=== PATIENT | male | born 1950 | race Caucasian/White ===

== ENCOUNTER 2020-11-03 15:13 | Emergency (ER) | payer MEDICARE, OTHER, SELFPAY ==
--- NOTE | 2020-11-03 15:08 | ECG_ITS ---
APPROVED REPORT Exam: Resting ECG HR:94 bpm ECG Measurements Heart Rate 94 AXES ND 168 P 68 QRSd 74 QRS 17 QT 362 T 40 QTc 452 Conclusion Normal sinus rhythm Possible Left atrial enlargement Borderline ECG Electronically signed by : Wally Baxter MD 11/03/2020 17:02:55
[2020-11-03 15:14] VITALS: BMI 25.8
--- NOTE | 2020-11-03 15:14 | XR_ITS ---
PROCEDURE INFORMATION: Exam: XR Chest Exam date and time: 11/03/2020 3:14 PM Age: 70 years old Clinical indication: Other: Rapid heart beat per patient. ; Additional info: Chest pain TECHNIQUE: Imaging protocol: XR of the chest. Views: 1 view. COMPARISON: No relevant prior studies available. FINDINGS: Lungs: The lungs are hyperinflated, consistent with underlying small airways disease. Atelectatic changes noted within both lung bases. Pleural spaces: Unremarkable. No pleural effusion. No pneumothorax. Heart/Mediastinum: Unremarkable. No cardiomegaly. Bones/joints: The thoracic spine demonstrates mild degenerative changes at multiple levels. IMPRESSION: 1. The lungs are hyperinflated, consistent with underlying small airways disease. 2. Atelectatic changes noted within both lung bases.
[2020-11-03 15:35] LABS: Basophils # 0.1 K/mm3 (0-0.2); Basophils % 1.3 % (0.1-2.0); Eosinophils # 0.1 K/mm3 (0.0-0.4); Eosinophils % 1.6 % (0.1-12.0); Hematocrit 45.9 % (42.0-52.0); Hemoglobin 15.7 g/dL (14.1-18.0); Lymphocytes # 1.1 K/mm3 (0.7-4.5); Mean Corpuscular HGB Conc 34.2 g/dL (31.8-35.4); Mean Corpuscular Hemoglobin 34.6 pg (27.0-31.2); Mean Corpuscular Volume 101.1 fl (80-94); Mean Platelet Volume 7.9 fl (7.4-10.4); Monocytes # 0.3 K/mm3 (0.1-1.0); Monocytes % 6.8 % (1.7-9.3); Neutrophils # 2.8 K/mm3 (1.8-7.8); Neutrophils % 64.4 % (37.0-80.0); Platelet Count 384 K/mm3 (142-424); Red Blood Count 4.54 M/mm3 (4.60-6.20); Red Cell Distribution Width 13.7 % (11.5-17.5); White Blood Count 4.4 K/mm3 (4.8-10.8)
[2020-11-03 15:49] LABS: Chloride 105 mmol/L (98-107); Potassium 3.3 mmoL/L (3.5-5.1); Sodium 142 mmol/L (136-145)
[2020-11-03 15:51] LABS: Blood Urea Nitrogen 13 mg/dl (9-20); Creatinine Clearance Estimated 79 mL/min (50-200); Estimated Glomerular Filt Rate 84 ml/min (>60); GFR (African American) 102 ML/MIN (>60)
[2020-11-03 15:52] LABS: Alanine Aminotransferase 44 U/L (12-78); Albumin Level 4.1 g/dl (3.5-5.0); Alkaline Phosphatase 89 U/L (38-126); Anion Gap 11.3 mEq/L (5-15); Aspartate Amino Transferase 52 U/L (17-59); Bilirubin,Direct 0.3 mg/dl (0.0-0.4); Bilirubin,Indirect 0.4 mg/dL (0.0-0.9); Bilirubin,Total 0.7 mg/dl (0.2-1.3); Bilirubin,Unconjugated 0.4 mg/dL (0.0-1.1); Carbon Dioxide 29 mmol/L (22.0-30.0); Glucose 104 mg/dl (74-100); Total Protein,Serum 7.1 g/dl (6.3-8.2)
[2020-11-03 15:58] LABS: D-Dimer 0.37 ug/mL (0.0-0.5)
[2020-11-03 16:10] LABS: Troponin I 0.01 ng/ml (0.00-0.034)
--- NOTE | 2020-11-03 18:41 | HMH.EDGENADL ---
ED Disposition Clinical Impression: Pleuritic chest pain, Abdominal distention Constipation Qualifiers: Constipation type: unspecified constipation type Qualified Code(s): K59.00 - Constipation, unspecified Disposition: Home, Self-Care Condition on Discharge: Good Instructions: DI for Atypical Chest Pain, DI for Constipation Additional Instructions: MiraLAX as prescribed. Follow-up with your physician at the [facility], call tomorrow to make appointment. Additional instructions for CHEST PAIN: See your physician as soon as possible for further evaluation. Return immediately if worsening chest pain, vomiting, shortness of breath, fever, coughing of blood. Additional instructions for ABDOMINAL PAIN: See your physician as soon as possible for further evaluation. Return immediately if worsening abdominal pain, vomiting, shortness of breath, fever, vomiting of blood or abdominal distention. Prescriptions: polyethylene glycoL 3350 [Miralax 17gm Packet] 17 gm PO DAILY #5 packet Prescription Printed Referrals: Provider,Referral, [Primary Care Provider] - - Critical Care Critical Care Time: No Attestation: On 11/03/20, the high probability of a clinically significant, sudden or life threatening deterioration of the following system(s) required my full and direct attention, intervention and personal management. The time I documented below is in addition to time spent performing reported procedures but includes the following listed in this critical care notation. Medical Decision Making - Tony Inquiry Pt receiving controlled substance: No Vital Signs: 11/03/20 19:00 11/03/20 19:39 Temperature 98.2 F 98.6 F Temperature Source Oral Oral Pulse Rate 100 H Pulse Rate [Right Brachial] 68 Respiratory Rate 17 16 Blood Pressure 137/97 H Blood Pressure [Right Arm] 137/100 H Blood Pressure Mean [Right Arm] 112 Blood Pressure Source Automatic Cuff Blood Pressure Source [Right Arm] Automatic Cuff Blood Pressure Position Sitting Blood Pressure Position [Right Arm] Sitting 02 Sat by Pulse Oximetry 98 95 Oxygen Delivery Method Room Air Room Air - Lab Data Lab Results 11/03/20 15:20: WBC 4.4 L, RBC 4.54 L, Hgb 15.7, Hct 45.9, MCV 101.1 H, MCH 34.6 H, MCHC 34.2, RDW 13.7, Plt Count 384, MPV 7.9, Neut % (Auto) 64.4, Lymph % (Auto) 26.0, Cannon % (Auto) 6.8, Eos % (Auto) 1.6, Baso % (Auto) 1.3, Neut # (Auto) 2.8, Lymph # (Auto) 1.1, Cannon # (Auto) 0.3, Eos # (Auto) 0.1, Baso # (Auto) 0.1 11/03/20 15:20: Sodium 142, Potassium 3.3 L, Chloride 105, Carbon Dioxide 29, Anion Gap 11.3, BUN 13, Creatinine 0.90, Estimated Creat Clear 79, Estimated GFR 84, Est GFR ( Amer) 102, Glucose 104 H, Calcium 9.0, Troponin I 0.01 11/03/20 15:20: D-Dimer 0.37 11/03/20 15:20: Total Bilirubin 0.7, Direct Bilirubin 0.3, Conjugated Bilirubin 0.0, Indirect Bilirubin 0.4, Unconjugated Bilirubin 0.4, AST 52, ALT 44, Alkaline Phosphatase 89, Total Protein 7.1, Albumin 4.1 11/03/20 15:20: Amylase 64, Lipase 147 11/03/20 18:24: Troponin I 0.01 Result diagrams: 11/03/20 15:20 11/03/20 15:20 Orders (Tests/Meds): ED MEDICATIONS Discontinued Medications Generic Name Dose Route Start Last Admin Trade Name Freq PRN Reason Stop Dose Admin Iopamidol 75 ml 11/03/20 20:23 11/03/20 20:24 Iopamidol-370 (76%);100ml Bottle IV 11/03/20 20:24 75 ml ONCE ONE Administration Sodium Chloride 10 ml 11/03/20 20:23 11/03/20 20:24 Sodium Chloride 0.9% 10ml Syr (Rad Only) IV 11/03/20 20:24 10 ml ONCE ONE Administration ORDERS Category Date Time Status Troponin I Q3H Lab 11/03/20 21:15 Ordered - Radiology Data #1 Image(s): Chest Image Reviewed: Yes I have reviewed radiologist's interpretation PROCEDURE INFORMATION: Exam: XR Chest Exam date and time: 11/03/2020 3:14 PM Age: 70 years old Clinical indication: Other: Rapid heart beat per patient. ; Additional info: Chest pain TECHNIQUE: Imag
[2020-11-03 18:58] LABS: Troponin I 0.01 ng/ml (0.00-0.034)
[2020-11-03 19:00] VITALS: BP 137/97; PULSE 100; RESP 17; TEMP 36.8; O2SAT 98
--- NOTE | 2020-11-03 19:00 | PC.NURSE ---
received report from verónica johns
--- NOTE | 2020-11-03 19:10 | CT_ITS ---
PROCEDURE INFORMATION: Exam: CT Abdomen And Pelvis With Contrast Exam date and time: 11/03/2020 7:10 PM Age: 70 years old Clinical indication: Generalized; Patient HX: Abdominal pain with distension. Prior HX of colon cancer in 2019, part of colon removed and chemotherapy. ; Additional info: Abdominal pain, distension TECHNIQUE: Imaging protocol: Computed tomography of the abdomen and pelvis with contrast. Radiation optimization: All CT scans at this facility use at least one of these dose optimization techniques: automated exposure control; mA and/or kV adjustment per patient size (includes targeted exams where dose is matched to clinical indication); or iterative reconstruction. Contrast material: ISOVUE; Contrast volume: 75 ml; Contrast route: IV; COMPARISON: CR XR CHEST PORTABLE 11/03/2020 3:24 PM FINDINGS: Lungs: Lung findings reported separately. Liver: There is a diffuse decrease in hepatic parenchymal density, consistent with mild fatty infiltration. The liver demonstrates punctate calcifications, consistent with remote granulomatous organism exposure. Gallbladder and bile ducts: Normal. No calcified stones. No ductal dilation. Pancreas: Normal. No ductal dilation. Spleen: The spleen demonstrates punctate calcifications, consistent with remote granulomatous organism exposure. Adrenal glands: 1.7 cm right adrenal nodule present, likely an adenoma. Mild thickening of the left adrenal gland. Kidneys and ureters: Nonspecific low-density foci of the kidneys statistically favor benign cysts, no further follow-up needed, as large as 4.5 cm on the right. 6 mm nonobstructing calcification present within the right kidney. Stomach and bowel: A large amount of stool is noted throughout the colon. Mild diverticulosis is present in the distal colon. Status post right hemicolectomy. Intraperitoneal space: Normal. No significant fluid collection. Vasculature: The vasculature demonstrates diffuse mild atherosclerotic calcification. Lymph nodes: No mesenteric or retroperitoneal lymphadenopathy. Urinary bladder: Unremarkable as visualized. Reproductive: The prostate demonstrates mild nonspecific enlargement. The seminal vesicles are normal. The prostate gland demonstrates nonspecific parenchymal calcifications. Bones/joints: The lumbar spine demonstrates mild degenerative changes at multiple levels. Soft tissues: Bilateral fat filled inguinal hernias. IMPRESSION: 1. 1.7 cm right adrenal nodule present, likely an adenoma. 2. 6 mm nonobstructing calcification present within the right kidney. 3. Bilateral fat filled inguinal hernias. 4. A large amount of stool is noted throughout the colon. 5. Mild diverticulosis is present in the distal colon. 6. No mesenteric or retroperitoneal lymphadenopathy.
[2020-11-03 19:23] LABS: Amylase 64 U/L (30-110); Lipase 147 U/L (23-300)
--- NOTE | 2020-11-03 19:34 | CT_ITS ---
PROCEDURE INFORMATION: Exam: CTA Chest With Contrast Exam date and time: 11/03/2020 7:34 PM Age: 70 years old Clinical indication: Sternal or substernal pain; Patient HX: 2 episodes of sharp chest pain. D-dimer .37 TECHNIQUE: Imaging protocol: Computed tomographic angiography of the chest with contrast. 3D rendering (Not supervised by radiologist): MIP and/or 3D reconstructed images were created by the technologist. Radiation optimization: All CT scans at this facility use at least one of these dose optimization techniques: automated exposure control; mA and/or kV adjustment per patient size (includes targeted exams where dose is matched to clinical indication); or iterative reconstruction. Contrast material: ISOVUE 370; Contrast volume: 75 ml; Contrast route: INTRAVENOUS (IV); COMPARISON: CR XR CHEST PORTABLE 11/03/2020 3:24 PM FINDINGS: Pulmonary arteries: No evidence of pulmonary embolism. Aorta: No evidence of aortic dissection. Lungs: Atelectatic changes noted within both lung bases. Pleural spaces: There is no evidence of pneumothorax. There are no pleural effusions present. Heart: Unremarkable. No cardiomegaly. No pericardial effusion. Lymph nodes: Unremarkable. No enlarged lymph nodes. Bones/joints: Unremarkable. No acute fracture. Soft tissues: Unremarkable. Other findings: Abdominal findings reported separately. IMPRESSION: 1. No evidence of pulmonary embolism. 2. No evidence of aortic dissection. 3. Atelectatic changes noted within both lung bases.
[2020-11-03 19:39] VITALS: BP 137/100; PULSE 68; RESP 16; TEMP 37; O2SAT 95; BMI 27.3
[2020-11-03 20:00] VITALS: BP 132/84; PULSE 77; RESP 16; TEMP 36.6; O2SAT 98
[2020-11-03 21:30] VITALS: BP 167/89; PULSE 65; RESP 18; O2SAT 98
[2020-11-03 21:48] VITALS: BP 157/82; PULSE 75; RESP 18; TEMP 36.7; O2SAT 98
[2020-11-03 21:54] LABS: Troponin I 0.02 ng/ml (0.00-0.034)
[2020-11-03 21:57] VITALS: BP 133/75; PULSE 77; RESP 16; O2SAT 98
== END 2020-11-03 22:00 | disposition home or self-care (01) ==
PROVIDERS: Emergency Provider Emergency Medicine
DX: R07.89 Other chest pain (principal); K59.00 Constipation, unspecified; I10 Essential (primary) hypertension; K21.9 Gastro-esophageal reflux disease without esophagitis; F17.210 Nicotine dependence, cigarettes, uncomplicated
CPT/HCPCS: 36415; 71045; 71275; 74177; 80048; 80076; 82150; 83690; 84484; 85025; 85378; 93005; 99282; Q9967

== ENCOUNTER → 2020-12-09 14:39 | Outpatient (CLI) | payer MEDICARE, OTHER, SELFPAY | PROVIDERS: PCP Internal Medicine; Visit Provider Nurse Practitioner | DX: Z20.822 Contact with and (suspected) exposure to COVID-19 (principal) | CPT/HCPCS: C9803; U0003; U0005 ==

== ENCOUNTER 2021-01-30 11:22 | Emergency (ER) | payer MEDICARE, OTHER, SELFPAY ==
[2021-01-30 11:23] VITALS: BP 121/101; PULSE 116; RESP 18; TEMP 36.8; O2SAT 96; BMI 26.6
--- NOTE | 2021-01-30 12:33 | HMH.EDGENADL ---
ED Disposition Clinical Impression: Abdominal bloating, Melena Disposition: Home, Self-Care Condition on Discharge: Fair Instructions: DI for Acute Abdominal Pain, Gastrointestinal Bleeding Referrals: Jeff Bhakta MD [Staff Physician] - 3 days (melena w/ hx colon cancer; needs PCP and scope) Time of Disposition: 13:26 - Critical Care Critical Care Time: No Attestation: On 01/30/21, the high probability of a clinically significant, sudden or life threatening deterioration of the following system(s) required my full and direct attention, intervention and personal management. The time I documented below is in addition to time spent performing reported procedures but includes the following listed in this critical care notation. Medical Decision Making - Medical Records Medical records reviewed: Yes: I reviewed the patient's medical records. - Tony Inquiry Pt receiving controlled substance: No Vital Signs: 01/30/21 11:23 Temperature 98.3 F Temperature Source Oral Pulse Rate [Right Radial] 116 H Respiratory Rate 18 Blood Pressure [Right Arm] 121/101 H Blood Pressure Mean [Right Arm] 107 Blood Pressure Source [Right Arm] Automatic Cuff Blood Pressure Position [Right Arm] Sitting 02 Sat by Pulse Oximetry 96 Oxygen Delivery Method Room Air - Lab Data Lab Results 01/30/21 12:50: WBC 5.1, RBC 4.98, Hgb 17.5, Hct 51.3, MCV 103.0 H, MCH 35.2 H, MCHC 34.1, RDW 14.3, Plt Count 380, MPV 7.8, Neut % (Auto) 70.7, Lymph % (Auto) 18.6, [place] % (Auto) 6.6, Eos % (Auto) 1.7, Baso % (Auto) 2.3 H, Neut # (Auto) 3.6, Lymph # (Auto) 1.0, [place] # (Auto) 0.3, Eos # (Auto) 0.1, Baso # (Auto) 0.1 01/30/21 12:50: Sodium 143, Potassium 3.6, Chloride 104, Carbon Dioxide 32 H, Anion Gap 10.6, BUN 10, Creatinine 0.90, Estimated Creat Clear 82, Estimated GFR 84, Est GFR ( Amer) 102, Glucose 101 H, Calcium 9.3, Total Bilirubin 1.0, AST 76 H, ALT 63, Alkaline Phosphatase 102, Total Protein 7.2, Albumin 4.3, Globulin 2.9, Albumin/Globulin Ratio 1.5, Lipase 169 Result diagrams: 01/30/21 12:50 01/30/21 12:50 Orders (Tests/Meds): ORDERS Category Date Time Status Hepatitis Panel (4) Stat Lab 01/30/21 12:01 Ordered Medical Decision Narrative: 70-year-old male with past medical history of hypertension, colon cancer status post resection, appendectomy, heavy smoker, and heavy alcohol use currently sober who presents to the emergency department with chief complaint of abdominal bloating and discomfort which has been ongoing since October of this year. Patient is scheduled to have an ultrasound outpatient but not until February 10, did not feel he could wait that long. [facility] it appears that patient was only scheduled to get an abdominal aortic ultrasound. Given patient's heavy alcohol use history, as well as abdominal symptoms we will attempt ultrasound his gallbladder, evaluate for ascites, and evaluate his aorta. [id number] bedside ultrasound was performed as ultrasound is not available today on the holiday. Bedside ultrasound did not reveal any aortic aneurysm or dissection, aorta is normal in caliber when measured through the bifurcation. Gallbladder does not have any wall thickening or pericholecystic fluid. There is presence of some sludge at the neck of the gallbladder. Cystic duct was unable to be identified due to bowel gas. No evidence of ascites or abnormal appearing liver parenchyma. Patient also had a CBC, CMP, hepatitis panel obtained while in the emergency department. This showed no anemia or thrombocytopenia. Mildly elevated AST, but no other significant abnormalities. Kidney function is within normal limits. Hepatitis panel did not result while the patient was in the emergency department, but we will schedule him for follow-up with his PCP to follow this up. Given patient's complaints of melena as well as abdominal discomfort, in the setting of colon cancer history, and alcohol use histo
[2021-01-30 13:02] LABS: Basophils # 0.1 K/mm3 (0-0.2); Basophils % 2.3 % (0.1-2.0); Eosinophils # 0.1 K/mm3 (0.0-0.4); Eosinophils % 1.7 % (0.1-12.0); Hematocrit 51.3 % (42.0-52.0); Hemoglobin 17.5 g/dL (14.1-18.0); Lymphocytes % 18.6 % (10-50); Mean Corpuscular HGB Conc 34.1 g/dL (31.8-35.4); Mean Corpuscular Hemoglobin 35.2 pg (27.0-31.2); Mean Platelet Volume 7.8 fl (7.4-10.4); Monocytes # 0.3 K/mm3 (0.1-1.0); Monocytes % 6.6 % (1.7-9.3); Neutrophils # 3.6 K/mm3 (1.8-7.8); Neutrophils % 70.7 % (37.0-80.0); Platelet Count 380 K/mm3 (142-424); Red Blood Count 4.98 M/mm3 (4.60-6.20); Red Cell Distribution Width 14.3 % (11.5-17.5); White Blood Count 5.1 K/mm3 (4.8-10.8)
[2021-01-30 13:07] LABS: Chloride 104 mmol/L (98-107); Potassium 3.6 mmoL/L (3.5-5.1); Sodium 143 mmol/L (136-145)
[2021-01-30 13:09] LABS: Alanine Aminotransferase 63 U/L (12-78); Aspartate Amino Transferase 76 U/L (17-59); Blood Urea Nitrogen 10 mg/dl (9-20); Creatinine Clearance Estimated 82 mL/min (50-200); Estimated Glomerular Filt Rate 84 ml/min (>60); GFR (African American) 102 ML/MIN (>60)
[2021-01-30 13:10] LABS: Albumin Level 4.3 g/dl (3.5-5.0); Albumin/Globulin Ratio 1.5 (1.1-1.8); Alkaline Phosphatase 102 U/L (38-126); Anion Gap 10.6 mEq/L (5-15); Calcium 9.3 mg/dl (8.4-10.2); Carbon Dioxide 32 mmol/L (22.0-30.0); Globulin 2.9 g/dL (1.3-3.2); Glucose 101 mg/dl (74-100); Lipase 169 U/L (23-300); Total Protein,Serum 7.2 g/dl (6.3-8.2)
[2021-01-30 13:37] VITALS: BP 154/100; PULSE 100; RESP 20; TEMP 36.8; O2SAT 96
[2021-02-02 10:12] LABS: Hep A Ab, IgM Negative (Negative); Hepatitis B Core Antibody IgM Negative (Negative); Hepatitis B Surface Antigen Negative (Negative); Hepatitis C Antibody <0.1 s/co ratio (0.0-0.9)
== END 2021-01-30 13:38 | disposition home or self-care (01) ==
PROVIDERS: Emergency Provider Emergency Medicine; PCP Family Medicine
DX: R10.30 Lower abdominal pain, unspecified (principal); K92.1 Melena; I10 Essential (primary) hypertension; F17.210 Nicotine dependence, cigarettes, uncomplicated; F10.11 Alcohol abuse, in remission; Z85.038 Personal history of other malignant neoplasm of large intestine
CPT/HCPCS: 80053; 80074; 83690; 85025; 99282

== ENCOUNTER → 2021-04-15 12:30 | Outpatient (CLI) | payer MEDICARE, OTHER, SELFPAY ==
[2021-04-16 08:30] LABS: Covid-19 Nasal PCR Sendout Lex NOT DETECTED
== END ==
PROVIDERS: Visit Provider Nurse Practitioner
DX: Z20.822 Contact with and (suspected) exposure to COVID-19 (principal)
CPT/HCPCS: C9803; U0004; U0005

== ENCOUNTER 2021-10-30 14:43 | Observation (INO) | payer MEDICARE, OTHER, SELFPAY ==
[2021-10-30] VITALS (20 sets, daily range): BP systolic 129–155; BP diastolic 71–95; PULSE 81–117; RESP 15–20; TEMP 37.2–38.1; O2SAT 92–98; BMI 27.3; BMI 26.6
--- NOTE | 2021-10-30 15:26 | CT_ITS ---
FINAL REPORT TECHNIQUE: Thin section axial images were obtained from the lung bases to the pubic symphysis without IV contrast. Coronal reconstruction images were obtained from the axial data. Exam was performed using dose reduction technique. CLINICAL HISTORY: flank pain COMPARISON: November 03, 2020 FINDINGS: There is atelectasis and scarring in the lung bases. There is a nonobstructing right renal stone. There are no obstructing renal or ureteral stones. There are right renal cysts. There is no hydronephrosis or perinephric stranding. There are diffuse fatty changes of the liver without focal lesion. The gallbladder is present. The spleen, left adrenal and pancreas are unremarkable. There is a stable hypodense right adrenal nodule measuring 2.5 cm. It is 12 Hounsfield units on noncontrast imaging and does not meet strict criteria for an adenoma. There is no small bowel obstruction. There is surgical anastomosis in the right abdomen from partial colectomy. There is no lymphadenopathy or ascites. There is no evidence of small bowel obstruction. The appendix is normal. GI tract is without acute abnormality. There is diverticulosis without diverticulitis. There is no lymphadenopathy or ascites. No acute osseous abnormality is identified. IMPRESSION: 1. Nonobstructing right renal stone. No obstructing renal stones. 2. Fatty liver. 3. Right adrenal nodule, not an adenoma by strict criteria. Reviewed, Interpreted and Dictated by Darleen Linda MD Transcribed by Lolis Alvarado Authenticated and [facility]
--- NOTE | 2021-10-30 15:34 | HMH.EDGENADL ---
Discharge Plan Disposition Chief Complaint: Recheck/Abnormal Lab/Rx Discharge ED Provider: Carri Valdivia General Adult HPI General Chief complaint: Recheck/Abnormal Lab/Rx Stated complaint: Fever, weakness, chills Time Seen by Provider: 10/30/21 15:26 History of Present Illness HPI narrative: This patient is a 71-year-old male with a history of BPH presenting to the emergency department for evaluation of polyuria, inability to empty his bladder, bilateral flank pain, and chills. He states that he has been feeling bad for a few days. He states that he does have a history of kidney stones, but this feels different. He states that fever and chills started overnight. Nothing makes his symptoms better or worse. He denies any chest pain, shortness of breath, incontinence, vomiting, saddle anesthesia, weakness, or other concerns. He does admit to diarrhea. Related Data Home Medications Medication Instructions Recorded Confirmed amlodipine 10 mg tablet 10 mg PO DAILY blood pressure 10/30/21 10/30/21 aspirin 81 mg capsule 81 mg PO DAILY Blood thinner 10/30/21 10/30/21 losartan 25 mg tablet 75 mg PO DAILY blood pressure 10/30/21 10/30/21 pantoprazole 40 mg tablet,delayed 40 mg PO ONCE GERD 10/30/21 10/30/21 release sildenafil 100 mg tablet 50 mg PO DAILY erectile dysfunction 10/30/21 10/30/21 Allergies Allergy/AdvReac Type Severity Reaction Status Date / Time No Known Allergies Allergy Verified 11/03/20 15:14 [facility] Social History (Updated 10/30/21 @ 20:51 by Carri Valdivia DO) Smoking Status: Current every day smoker tobacco type: cigarettes packs per day: 1 alcohol intake: current substance use type: denies use current occupational status: previously employed ROS Obtained: Yes All systems reviewed & no additional complaints except as documented 14 point review of systems obtained and negative except otherwise mentioned in HPI. Physical Exam General General appearance: alert and in no apparent distress Comment: Nontoxic-appearing Head Head exam: atraumatic and normocephalic Eye Eye exam: Present normal appearance, PERRL and EOMI ENT ENT exam: Present normal exam, normal oropharynx and normal external ear exam Neck Neck exam: Present normal inspection and full ROM Chest Chest inspection: Present normal inspection and symmetric chest wall rise Respiratory Respiratory exam: Present normal lung sounds bilaterally; Absent respiratory distress or wheezes Cardiovascular Cardiovascular exam: Present regular rate and normal rhythm Abdominal Exam Abdominal exam: Present soft and tenderness (Suprapubic); Absent distention, guarding, rebound or rigidity Extremities Exam Extremities exam: Present normal inspection Back Exam Back exam: Present normal inspection Neurological Exam Neurological exam: Present alert, oriented X3 and CN II-XII intact Psychiatric Psychiatric exam: Present normal affect Skin Skin exam: Present warm and dry Lymphatic Lymphatic Findings: no adenopathy Medical Decision Making Medical Records Medical records reviewed: Yes I reviewed the patient's medical records. Tony Inquiry Pt receiving controlled substance: No Vital Signs: 10/30/21 15:08 10/30/21 15:30 10/30/21 15:53 Temperature 99.0 F Temperature Source Oral Pulse Rate 109 H Pulse Rate [Left Radial] 117 H Respiratory Rate 17 Blood Pressure 145/95 H 133/92 H Blood Pressure [Right Arm] 143/92 H Blood Pressure Mean 111 114 Blood Pressure Mean [Right Arm] 109 02 Sat by Pulse Oximetry 94 L 95 Oxygen Delivery Method Room Air Oxygen Flow Rate (LPM) 10/30/21 16:00 10/30/21 16:30 10/30/21 17:00 Temperature Temperature Source Pulse Rate 102 H 86 93 H Pulse Rate [Left Radial] Respiratory Rate 17 Blood Pressure 134/92 H 133/71 140/77 Blood Pressure [Right Arm] Blood Pressure Mean 106 91 Blood Pressure Mean [Right Arm] 02 Sat by Pulse Oximetry 98 96 95 Oxygen Delivery
[2021-10-30 16:12] LABS: Basophils # 0.1 K/mm3 (0-0.2); Basophils % 1.2 % (0.1-2.0); Eosinophils % 0.8 % (0.1-12.0); Hematocrit 52.5 % (42.0-52.0); Hemoglobin 17.5 g/dL (14.1-18.0); Lymphocytes # 0.6 K/mm3 (0.7-4.5); Lymphocytes % 11.5 % (10-50); Mean Corpuscular HGB Conc 33.2 g/dL (31.8-35.4); Mean Corpuscular Volume 102.4 fl (80-94); Mean Platelet Volume 8.3 fl (7.4-10.4); Monocytes # 0.3 K/mm3 (0.1-1.0); Monocytes % 5.6 % (1.7-9.3); Neutrophils # 4.3 K/mm3 (1.8-7.8); Neutrophils % 80.9 % (37.0-80.0); Platelet Count 331 K/mm3 (142-424); Red Blood Count 5.13 M/mm3 (4.60-6.20); Red Cell Distribution Width 15.1 % (11.5-17.5); White Blood Count 5.3 K/mm3 (4.8-10.8)
[2021-10-30 16:17] LABS: Alanine Aminotransferase 54 U/L (12-78); Albumin/Globulin Ratio 1.4 (1.1-1.8); Alkaline Phosphatase 108 U/L (38-126); Anion Gap 8.7 mEq/L (5-15); Aspartate Amino Transferase 55 U/L (17-59); Bilirubin,Total 1.2 mg/dl (0.2-1.3); Blood Urea Nitrogen 5 mg/dl (9-20); Calcium 8.6 mg/dl (8.4-10.2); Carbon Dioxide 33 mmol/L (22.0-30.0); Chloride 100 mmol/L (98-107); Creatinine Clearance Estimated 83 mL/min (50-200); Estimated Glomerular Filt Rate 96 ml/min (>60); GFR (African American) 116 ML/MIN (>60); Globulin 2.9 g/dL (1.3-3.2); Glucose 100 mg/dl (74-100); Lactic Acid 1.1 mmol/L (0.7-2.1); Lipase 230 U/L (23-300); Sodium 139 mmol/L (136-145); Total Protein,Serum 6.9 g/dl (6.3-8.2)
[2021-10-30 16:21] LABS: Potassium 2.7 mmoL/L (3.5-5.1)
--- NOTE | 2021-10-30 16:23 | PC.NURSE ---
notified ER of critical potassium result
[2021-10-30 16:24] LABS: Coronavirus 19, PCR Not Detected (NotDetected); Influenza A, PCR Not Detected (NotDetected); Influenza B, PCR Not Detected (NotDetected)
[2021-10-30 16:34] LABS: Microscopic, Urine URINE MICROSCOPIC (MICROSCOPIC)
[2021-10-30 17:01] LABS: Appearance,Urine CLEAR (Clear); Bilirubin,Urine Negative (Negative); Blood, Urine TRACE-L (Negative); Color,Urine YELLOW (Yellow); Glucose,Urine (UA) Negative (Negative); Ketones,Urine TRACE (Negative); Leukocyte Esterase,Urine 2+ (Negative); Nitrate,Urine Negative (Negative); Protein,Urine TRACE (Negative); Urobilinogen,Urine 0.2 EU/dl (0.2)
[2021-10-30 17:07] LABS: Bacteria,Urine Trace /lpf; RBC,Urine Occasional #/hpf (0-3)
[2021-10-30 17:08] LABS: Amorphous Sediment,Urine Trace /lpf
--- NOTE | 2021-10-30 17:44 | PC.NURSE ---
pt girlfriend called at this time to check on pt. She wanted us to notify the doctor that if pt is admitted we would need to monitor him for alcohol withdraw, states pt drinks approx a fifth of liquor per day. Notified ER MD after speaking with pt girlfriend.
--- NOTE | 2021-10-30 18:46 | PC.NURSE ---
DR LUTHER AVILA FOR POSSIBLE ADMISSION
--- NOTE | 2021-10-30 19:02 | PC.NURSE ---
pt filled out the [facility] refusal form and that has been faxed to the number on the sheet at this time.
--- NOTE | 2021-10-30 19:03 | PC.NURSE ---
MARYSOL JOE at speaking with Dr. Clement at this time
[2021-10-30 19:21] LABS: Activated Partial Thrombo Time 31.2 seconds (22.8-30.6); INR 1.15 (0.9-1.1); Prothrombin Time 12.9 seconds (10.1-12.5)
[2021-10-30 19:24] LABS: Ethyl Alcohol < 10 mg/dl (0-10)
--- NOTE | 2021-10-30 20:10 | PC.NURSE ---
Attempted to call report; nurse Angela stated she would call back.
--- NOTE | 2021-10-30 20:24 | PC.NURSE ---
2017-Report given to Angela Bull RN.
--- NOTE | 2021-10-30 20:57 | PC.NURSE ---
Addendum entered by Charmaine Summers CNA 10/30/21 21:32: CORRECTION PT ARRIVED TO FLOOR VIA W/C @ 2056 Original Note: PT ARRIVED TO FLOO @ 2056
--- NOTE | 2021-10-30 23:49 | PC.NURSE ---
RN Aware of elevated BP and Temp @ this time.
[2021-10-31] VITALS (8 sets, daily range): BP systolic 125–159; BP diastolic 77–91; PULSE 61–100; RESP 16–20; TEMP 36.9–37.3; O2SAT 91–95; BMI 26.6
--- NOTE | 2021-10-31 04:00 | PC.NURSE ---
pt admitted this shift with electrolyte imbalances and weakness, bed alarm remains in use, side rails padded for possible etoh withdrawal, pt states that he drinks a fifth of liquor daily and last drink was 10/28; CIWA was a 9 and pt given diazepam as prescribed x2 with relief, and pt rested well, pt alert and oriented x4; no edema or swelling noted, skin pwd, pt on 02 at 1L pnc for 02 sats 89 on room air, o2 sats have been 91-94 on 2L of ; lung sounds clear, pt voiding without difficulty, pt on flomax at home, no other issues or concerns at this time.
[2021-10-31 06:21] LABS: Chloride 104 mmol/L (98-107); Sodium 139 mmol/L (136-145)
[2021-10-31 06:22] LABS: Basophils # 0.1 K/mm3 (0-0.2); Basophils % 2.4 % (0.1-2.0); Eosinophils # 0.1 K/mm3 (0.0-0.4); Eosinophils % 2.3 % (0.1-12.0); Hematocrit 47.5 % (42.0-52.0); Lymphocytes # 0.9 K/mm3 (0.7-4.5); Lymphocytes % 19.9 % (10-50); Mean Corpuscular HGB Conc 32.3 g/dL (31.8-35.4); Mean Corpuscular Hemoglobin 33.1 pg (27.0-31.2); Mean Corpuscular Volume 102.7 fl (80-94); Mean Platelet Volume 8.1 fl (7.4-10.4); Monocytes # 0.3 K/mm3 (0.1-1.0); Monocytes % 7.4 % (1.7-9.3); Neutrophils # 2.9 K/mm3 (1.8-7.8); Platelet Count 237 K/mm3 (142-424); Red Blood Count 4.63 M/mm3 (4.60-6.20); White Blood Count 4.3 K/mm3 (4.8-10.8)
[2021-10-31 06:24] LABS: Alanine Aminotransferase 37 U/L (12-78); Albumin Level 3.3 g/dl (3.5-5.0); Albumin/Globulin Ratio 1.2 (1.1-1.8); Alkaline Phosphatase 87 U/L (38-126); Anion Gap 7.9 mEq/L (5-15); Aspartate Amino Transferase 50 U/L (17-59); Bilirubin,Total 0.7 mg/dl (0.2-1.3); Carbon Dioxide 30 mmol/L (22.0-30.0); Globulin 2.7 g/dL (1.3-3.2)
[2021-10-31 06:25] LABS: Calcium 7.6 mg/dl (8.4-10.2); Glucose 110 mg/dl (74-100)
[2021-10-31 06:41] LABS: Potassium 2.9 mmoL/L (3.5-5.1)
[2021-10-31 07:05] LABS: Hemoglobin 15.3 g/dL (14.1-18.0)
[2021-10-31 07:18] LABS: Blood Urea Nitrogen 5 mg/dl (9-20); Creatinine Clearance Estimated 81 mL/min (50-200); Estimated Glomerular Filt Rate 112 ml/min (>60); GFR (African American) 135 ML/MIN (>60)
--- NOTE | 2021-10-31 07:30 | P.CONPHA_ITS ---
[facility] Pharmacy VTE Monitoring Patient Demographics Admission date: 10/30/21 Report Date: 10/31/21 Time: 07:30 Patient Allergies No Known Allergies Allergy (Verified 11/03/20 15:14) Height: 1.75 m Weight: 81.732 kg Current Active Problems (Updated 10/30/21 @ 22:43 by Angela Kim RN) Hypokalemia (Acute) Hypomagnesemia (Acute) Weakness (Acute) VTE Risk Labs: VTE Related Lab Results Hgb 15.3 g/dL (14.1-18.0) D 10/31/21 05:50 Hct 47.5 % (42.0-52.0) 10/31/21 05:50 Plt Count 237 K/mm3 (142-424) D 10/31/21 05:50 PT 12.9 seconds (10.1-12.5) H 10/30/21 15:58 INR 1.15 (0.9-1.1) H 10/30/21 15:58 APTT 31.2 seconds (22.8-30.6) H 10/30/21 15:58 BUN 5 mg/dl (9-20) L 10/31/21 05:50 Creatinine 0.70 mg/dl (0.66-1.25) 10/31/21 05:50 Estimated Creat Clear 81 mL/min (50-200) 10/31/21 05:50 Was VTE Risk Assessment Performed: Yes VTE Score: 3 VTE Risk Level: Low Risk Prophylaxis VTE Prophylaxis Ordered?: Yes Types of VTE Prophylaxis: TEDS Knee High and Pharmacological Location of Applied Device: Bilateral Lower Extremeties Pharmacologic Type: Enoxaparin
--- NOTE | 2021-10-31 08:08 | EXP.HP ---
History of Present Illness *Admission Date: 10/30/21 *Reason for consult:: Admission to hospital *History of present illness: Medical Decision Narrative: In summary, this patient is a 71-year-old male with history of BPH presented to the emergency department for difficulty urinating, fever, flank pain, and body aches.? Differential diagnoses include pyelonephritis, urinary tract infection, urinary retention, viral syndrome, ureterolithiasis.? The patient is clinically well-appearing on physical exam.? He is mildly tachycardic, but vitals are otherwise normal.? We will obtain CBC, CMP, lipase, lactic acid, urinalysis, and CT scan abdomen pelvis without IV contrast.? Will administer a liter bolus of IV fluids, IV morphine, and IV Zofran and assess for symptomatic relief. On reassessment, the patient states that he feels better but he is persistently tachycardic.? He has had a profound hypokalemia for which both oral and IV replacement ordered.? He is placed on CIWA protocol with concern for alcohol withdrawals.? He is found to have an infected kidney stone, for which IV Rocephin was ordered.? Given these findings, patient was admitted in stable condition for further evaluation and management. Above Per ER physician. Patient arrived with the above symptoms. Admitted with IV Rocephin. Found to have nonobstructing kidney stone. Placed on alcohol withdrawal protocols. Patient states that his local physician is Dr. Summers but he typically follows with the [place] but has not had appointments or does not believe he has anything scheduled at this point. Notes that this morning on rounds he is feeling much better, no vomiting, no difficulty urinating and no abdominal pain. [facility] Medical History (Updated 10/31/21 @ 08:11 by Wally Baxter MD) Benign prostatic hyperplasia Colon cancer History of back pain History of gastroesophageal reflux (GERD) Hypertension Kidney stone Pneumonia Skin cancer Surgical History (Updated 10/30/21 @ 22:43 by Angela Kim RN) H/O removal of cyst History of appendectomy History of colon resection History of colonoscopy Social History (Updated 10/30/21 @ 22:43 by Angela Kim RN) Smoking Status: Current every day smoker tobacco type: cigarettes packs per day: 1 years smoked: 51 quit status: has quit before alcohol intake: current substance use type: denies use current occupational status: previously employed Travel in the last 8 weeks: None household members: significant other and caregiver housing: apartment lives independently: Yes marital status: education level: college Review of Systems Review of Systems Review of systems:: pertinent systems reviewed and negative unless documented below Meds Home Medications and Allergies Home Medications Medication Instructions Recorded Confirmed Type amlodipine 10 mg tablet 10 mg PO DAILY blood pressure 10/30/21 10/30/21 History aspirin 81 mg capsule 81 mg PO DAILY Blood thinner 10/30/21 10/30/21 History losartan 25 mg tablet 75 mg PO DAILY blood pressure 10/30/21 10/30/21 History pantoprazole 40 mg tablet,delayed 40 mg PO ONCE GERD 10/30/21 10/30/21 History release sildenafil 100 mg tablet 50 mg PO DAILY erectile dysfunction 10/30/21 10/30/21 History tamsulosin 0.4 mg capsule 0.4 mg PO HS prostate 10/30/21 10/30/21 History New Prescriptions to Start Prescriptions: Allergies Allergy/AdvReac Type Severity Reaction Status Date / Time No Known Allergies Allergy Verified 11/03/20 15:14 Exam Data for Last 24 hours Vital signs and Labs for Last 24 Hours: Temp Pulse Resp BP Pulse Ox FiO2 98.6 F 70 20 125/77 91 L 1 10/31/21 03:50 10/31/21 04:00 10/31/21 03:50 10/31/21 03:50 10/31/21 03:50 10/30/21 23:47 Laboratory Results - last 24 hr 10/30/21 15:58: WBC 5.3, RBC 5.13, Hgb 17.5, Hct 52.5 H, MCV 102.4 H, MCH 34.0 H, MCHC 33.2, RDW 15.1, Plt Count 331, MPV 8.3, Neut % (
--- NOTE | 2021-10-31 11:59 | HMH.PHAINT1 ---
Pharmacy Intervention Comments: MEDICATION RECONCILIATION COMPLETED ON PATIENT VIA PATIENT INTERVIEW. -EMANI AGARWAL, EMILYD
--- NOTE | 2021-10-31 15:05 | PC.NURSE ---
rounded on patient. patient noted to be sleeping in bed. call light within reach.
--- NOTE | 2021-10-31 16:13 | EXP.SURG.CON ---
History of Present Illness *Admission Date: 10/30/21 *Reason for visit:: Abdominal pain, fever *History of present illness: Medical Decision Narrative: In summary, this patient is a 71-year-old male with history of BPH presented to the emergency department for difficulty urinating, fever, flank pain, and body aches.? Differential diagnoses include pyelonephritis, urinary tract infection, urinary retention, viral syndrome, ureterolithiasis.? The patient is clinically well-appearing on physical exam.? He is mildly tachycardic, but vitals are otherwise normal.? We will obtain CBC, CMP, lipase, lactic acid, urinalysis, and CT scan abdomen pelvis without IV contrast.? Will administer a liter bolus of IV fluids, IV morphine, and IV Zofran and assess for symptomatic relief. On reassessment, the patient states that he feels better but he is persistently tachycardic.? He has had a profound hypokalemia for which both oral and IV replacement ordered.? He is placed on CIWA protocol with concern for alcohol withdrawals.? He is found to have an infected kidney stone, for which IV Rocephin was ordered.? Given these findings, patient was admitted in stable condition for further evaluation and management. Above Per ER physician. Patient arrived with the above symptoms. Admitted with IV Rocephin. Found to have nonobstructing kidney stone. Placed on alcohol withdrawal protocols. Patient states that his local physician is Dr. Summers but he typically follows with the [facility] but has not had appointments or does not believe he has anything scheduled at this point. Notes that this morning on rounds he is feeling much better, no vomiting, no difficulty urinating and no abdominal pain. [facility] Medical History (Updated 10/31/21 @ 16:16 by Kings Bhandari MD) Benign prostatic hyperplasia Colon cancer History of back pain History of gastroesophageal reflux (GERD) Hypertension Kidney stone Pneumonia Skin cancer Surgical History (Updated 10/30/21 @ 22:43 by Angela Kim RN) H/O removal of cyst History of appendectomy History of colon resection History of colonoscopy Social History (Updated 10/30/21 @ 22:43 by Angela Kim RN) Smoking Status: Current every day smoker tobacco type: cigarettes packs per day: 1 years smoked: 51 quit status: has quit before alcohol intake: current substance use type: denies use current occupational status: previously employed Travel in the last 8 weeks: None household members: significant other and caregiver housing: apartment lives independently: Yes marital status: education level: college Review of Systems Review of Systems Review of systems:: pertinent systems reviewed and negative unless documented below Meds Home Medications and Allergies Home Medications Medication Instructions Recorded Confirmed Type amlodipine 10 mg tablet 10 mg PO DAILY Hypertension 10/30/21 10/30/21 History aspirin 81 mg capsule 81 mg PO DAILY HEART HEALTH 10/30/21 10/30/21 History losartan 25 mg tablet 75 mg PO DAILY Hypertension 10/30/21 10/30/21 History pantoprazole 40 mg tablet,delayed 40 mg PO DAILY GERD 10/30/21 10/31/21 History release sildenafil 100 mg tablet 50 mg PO NEEDED PRN Erectile 10/30/21 10/31/21 History Dysfunction tamsulosin 0.4 mg capsule 0.4 mg PO HS prostate 10/30/21 10/30/21 History New Prescriptions to Start Prescriptions: Allergies Allergy/AdvReac Type Severity Reaction Status Date / Time No Known Allergies Allergy Verified 11/03/20 15:14 Exam (Inpt) Vital signs and Labs for Last 24 Hours: Temp Pulse Resp BP Pulse Ox FiO2 99.0 F 80 18 135/91 H 95 1 10/31/21 16:00 10/31/21 16:00 10/31/21 16:00 10/31/21 16:00 10/31/21 16:00 10/30/21 23:47 Laboratory Results - last 24 hr 10/30/21 15:58: Sodium 139, Potassium 2.7 L*, Chloride 100, Carbon Dioxide 33 H, Anion Gap 8.7, BUN 5 L, Creatinine 0.80, Estimated Creat Clear 83
--- NOTE | 2021-10-31 16:31 | PC.NURSE ---
pt is aox4, able to make needs known to staff. seizure precautions and bed alarm in use. latest ciwa score was 6. 2lnc for o2 support. ambulating to restroom without difficulty.
[2021-11-01] VITALS: PULSE 80
[2021-11-01 04:00] VITALS: BP 154/90; PULSE 60; PULSE 71; RESP 17; TEMP 36.7; O2SAT 97; BMI 26.9
--- NOTE | 2021-11-01 04:55 | PC.NURSE ---
Patient a&o x4. Patient scores a 5 on CIWA this shift. Patient rested well. Patient tolerating 1L nc with sats above 90%. Bed alarm remains in use with side rails padded for safety. No other concerns at this time.
[2021-11-01 07:22] LABS: Basophils % 0.9 % (0.1-2.0); Eosinophils # 0.2 K/mm3 (0.0-0.4); Eosinophils % 3.6 % (0.1-12.0); Hematocrit 47.8 % (42.0-52.0); Hemoglobin 15.1 g/dL (14.1-18.0); Lymphocytes # 0.9 K/mm3 (0.7-4.5); Lymphocytes % 22.5 % (10-50); Mean Corpuscular HGB Conc 31.5 g/dL (31.8-35.4); Mean Corpuscular Hemoglobin 32.5 pg (27.0-31.2); Mean Corpuscular Volume 103.1 fl (80-94); Mean Platelet Volume 7.7 fl (7.4-10.4); Monocytes # 0.4 K/mm3 (0.1-1.0); Monocytes % 8.5 % (1.7-9.3); Neutrophils # 2.6 K/mm3 (1.8-7.8); Neutrophils % 64.6 % (37.0-80.0); Platelet Count 250 K/mm3 (142-424); Red Blood Count 4.64 M/mm3 (4.60-6.20); White Blood Count 4.1 K/mm3 (4.8-10.8)
[2021-11-01 07:27] LABS: Blood Urea Nitrogen 6 mg/dl (9-20); Calcium 7.9 mg/dl (8.4-10.2); Carbon Dioxide 30 mmol/L (22.0-30.0); Chloride 106 mmol/L (98-107); Creatinine Clearance Estimated 81 mL/min (50-200); Estimated Glomerular Filt Rate 112 ml/min (>60); GFR (African American) 135 ML/MIN (>60); Glucose 113 mg/dl (74-100); Magnesium 1.4 mg/dl (1.6-2.3); Potassium 3.1 mmoL/L (3.5-5.1)
[2021-11-01 07:43] LABS: Anion Gap 5.1 mEq/L (5-15); Sodium 138 mmol/L (136-145)
[2021-11-01 08:00] VITALS: BP 156/93; PULSE 70; PULSE 83; RESP 16; RESP 19; TEMP 36.8; O2SAT 96
[2021-11-01 12:00] VITALS: BP 149/91; PULSE 76; PULSE 83; RESP 17; TEMP 36.7; O2SAT 97
--- NOTE | 2021-11-01 13:57 | EXP.DC.SUM ---
General Admission date:: 10/30/21 Discharge date: 11/01/21 HPI HPI HPI: Mr. Allan is a 71-year-old male with history of BPH presented to the emergency department for difficulty urinating, fever, flank pain, and body aches.? Differential diagnoses include pyelonephritis, urinary tract infection, urinary retention, viral syndrome, ureterolithiasis.? The patient is clinically well-appearing on physical exam.? He is mildly tachycardic, but vitals are otherwise normal.? We will obtain CBC, CMP, lipase, lactic acid, urinalysis, and CT scan abdomen pelvis without IV contrast.? Will administer a liter bolus of IV fluids, IV morphine, and IV Zofran and assess for symptomatic relief. On reassessment, the patient states that he feels better but he is persistently tachycardic.? He has had a profound hypokalemia for which both oral and IV replacement ordered.? He is placed on CIWA protocol with concern for alcohol withdrawals.? He is found to have an infected kidney stone, for which IV Rocephin was ordered.? Given these findings, patient was admitted in stable condition for further evaluation and management. Above Per ER physician. Patient arrived with the above symptoms. Admitted with IV Rocephin. Found to have nonobstructing kidney stone. Placed on alcohol withdrawal protocols. Patient states that his local physician is Dr. Summers but he typically follows with the [facility] but has not had appointments or does not believe he has anything scheduled at this point. Notes that this morning on rounds he is feeling much better, no vomiting, no difficulty urinating and no abdominal pain. Hospital Course Hospital Course Hospital Course: 71 yo M admitted for concern for urinary obstruction, nephrolithiasis, UTI. Initiated on IV abx (Ceftriaxone) and urology consulted. Imaging identified a 6 mm right lower pole stone.? Urology stated the stone is nonobstructing and patient's symptoms are not consistent with renal colic.? The stone has been present for least a year and in the same location and the same size per CT scan dated October 2020.? Patient was reassured that the stone is not causing any current symptoms. Sx most likely from his longstanding BPH. [facility] He has been on tamsulosin for quite some time.? He is voiding better at this time and no longer having significant pain in abdomen/flank. Concern for prostate congestion or bacterial prostatitis given some of his symptoms.? Given he has improved, will transition to oral antibiotics. Complete empiric course of PO abx. D[facility]. Given EtOH use, monitored and treated for withdrawal per [facility] protocol. Sx resolved. Stable from withdrawal at time of DC. Continued home meds for BP. Stable for DC home. Exam Data for Last 24 hours Vital signs and Labs for Last 24 Hours: Temp Pulse Resp BP Pulse Ox FiO2 98.2 F 83 19 156/93 H 96 1 11/01/21 08:00 11/01/21 08:00 11/01/21 08:00 11/01/21 08:00 11/01/21 08:00 10/30/21 23:47 Laboratory Results - last 24 hr 11/01/21 06:40: WBC 4.1 L, RBC 4.64, Hgb 15.1, Hct 47.8, MCV 103.1 H, MCH 32.5 H, MCHC 31.5 L, RDW 15.0, Plt Count 250, MPV 7.7, Neut % (Auto) 64.6, Lymph % (Auto) 22.5, [place] % (Auto) 8.5, Eos % (Auto) 3.6, Baso % (Auto) 0.9, Neut # (Auto) 2.6, Lymph # (Auto) 0.9, [place] # (Auto) 0.4, Eos # (Auto) 0.2, Baso # (Auto) 0.0 11/01/21 06:40: Sodium 138, Potassium 3.1 L, Chloride 106, Carbon Dioxide 30, Anion Gap 5.1, BUN 6 L, Creatinine 0.70, Estimated Creat Clear 81, Estimated GFR 112, Est GFR ( Amer) 135, Glucose 113 H, Calcium 7.9 L, Magnesium 1.4 L I & O for Last 24 hours: Intake & Output 10/29/21 10/30/21 10/31/21 11/01/21 23:59 23:59 23:59 23:59 Intake Total 2574 / 2574 780 / 780 Output Total 650 / 650 1630 / 1980 850 / 850 Balance -650 / -650 944 / 594 -70 / -70 Weight 81.732 kg 81.73 kg 82.554 kg Microbiology Reports for the Last 24 Hours: Microbiology 10/30/21 16:05
--- NOTE | 2021-11-01 14:40 | HMH.PHAINT1 ---
Pharmacy Intervention Comments: DISCHARGE MEDICATION COUNSELING PROVIDED. DISCUSSED SHORT-COURSE LEVAQUIN (TAKE DAILY, WITH OR WITHOUT FOOD, FOOD MAY CUT DOWN ON GI SIDE EFFECTS, WATCH FOR NAUSEA/VOMITING/DIARRHEA, RARE RISK OF TENDON RUPTURE. PATIENT VERBALIZED NO QUESTIONS AT THIS TIME.
--- NOTE | 2021-11-01 15:44 | PC.NURSE ---
clinic pharm unable to fill prescription without insurance info. pt does not have info with him. called admissions to have them fax over info to clinic pharmacy. clinic pharmacy called this rn and said they were closing for the day. made md gaines aware pt was not able to get his prescription filled at this time.
--- NOTE | 2021-11-01 15:51 | PC.NURSE ---
called levofloxacin prescription to [facility]
--- NOTE | 2021-11-04 14:24 | CARE MANAGER ---
Attempted post-discharge phone interview, no answer and mailbox is full.
== END 2021-11-01 15:53 | disposition home or self-care (01) ==
LOC: UTC 14:49 → ER 14:58 → 2ND 19:47
PROVIDERS: Internal Medicine Adolescent Medicine; Admitting Provider Internal Medicine Adolescent Medicine; Emergency Provider Emergency Medicine; PCP Family Medicine; Visit Provider Internal Medicine Adolescent Medicine
DX: N40.1 Benign prostatic hyperplasia with lower urinary tract symptoms (principal); E87.6 Hypokalemia; E83.42 Hypomagnesemia; N20.0 Calculus of kidney; F17.210 Nicotine dependence, cigarettes, uncomplicated; Z79.899 Other long term (current) drug therapy; Z20.822 Contact with and (suspected) exposure to COVID-19; F10.10 Alcohol abuse, uncomplicated; Z79.01 Long term (current) use of anticoagulants
CPT/HCPCS: G0378; 36415; 74176; 80048; 80053; 81001; 83605; 83690; 83735; 85025; 85610; 85730; 87040; 87086; 87088; 87186; 99285; C9803; J0696; J2405; J3475; U0003; U0005